=== PATIENT | male | born 1990 | race Caucasian/White ===

== ENCOUNTER 2021-12-25 16:16 | Inpatient (IN) | payer OTHER ==
[2021-12-25 17:26] VITALS: BMI 36.5
[2021-12-25] MEDS ORDERED: DICYCLOMINE HCL 10 MG CAPSULE PO PRN (19:33)
[2021-12-25] MEDS ORDERED: IBUPROFEN 400 MG TABLET (FP) PO PRN (19:33)
[2021-12-25] MEDS ORDERED: METHOCARBAMOL 500 MG TABLET PO PRN (19:33)
[2021-12-25] MEDS ORDERED: chlordiazePOXIDE HCL 25 MG CAPSULE PO PRN (19:33)
[2021-12-25] MEDS ORDERED: MAGNESIUM HYDROX 2400MG/30ML ORAL SUSPENSION 30 ML CUP PO PRN (19:33)
[2021-12-25] MEDS ORDERED: BISMUTH SUBSALICYLATE 524 MG/30 ML PO PRN (19:33)
[2021-12-25] MEDS ORDERED: ACETAMINOPHEN 325 MG TABLET (FP) PO PRN ×2 (19:33)
[2021-12-25] MEDS ORDERED: NICOTINE 10 MG CARTRIDGE (INHALER) IH PRN (19:33)
[2021-12-25] MEDS ORDERED: IBUPROFEN 600 MG TABLET (FP) PO PRN (19:33)
[2021-12-25] MEDS ORDERED: LOPERAMIDE HCL 2 MG CAPSULE PO PRN (19:33)
[2021-12-25] MEDS ORDERED: ONDANSETRON *ODT* 4 MG TABLET SL PRN (19:33)
[2021-12-25] MEDS ORDERED: BENZOCAINE/MENTHOL (CHLORASEPTIC ) LOZENGE MM PRN (19:33)
[2021-12-25] MEDS ORDERED: MAGNESIUM CITRATE 300 ML BOTTLE PO PRN (19:33)
[2021-12-25] MEDS ORDERED: MAG HYDROX/AL HYDROX/SIMETH 30 ML UNIT-DOSE CUP PO PRN (19:33)
[2021-12-25] MEDS ORDERED: traZODone HCL 50 MG TABLET (FP) PO ONE (22:00)
[2021-12-25] MEDS ORDERED: chlordiazePOXIDE HCL 25 MG CAPSULE ONE (22:25)
[2021-12-25] MEDS: THIAMINE HCL 100 MG TABLET (FP) PO SCH (22:39)
[2021-12-25] MEDS: MELATONIN 5 MG TABLETS PO SCH (22:39)
[2021-12-25] MEDS: chlordiazePOXIDE HCL 25 MG CAPSULE PO SCH (23:05)
[2021-12-26] MEDS: chlordiazePOXIDE HCL 25 MG CAPSULE PO SCH ×4 (05:06→22:17)
[2021-12-26] MEDS ORDERED: chlordiazePOXIDE HCL 25 MG CAPSULE ONE ×2 (05:07→09:05)
[2021-12-26] MEDS ORDERED: TRIMETHOBENZAMIDE HCL 200MG/2ML INJ IM ONE ×2 (08:52→09:04)
[2021-12-26] MEDS ORDERED: METOPROLOL TARTRATE 25 MG TABLET (FP) ONE (09:06)
[2021-12-26] MEDS: PRENATAL VITAMINS W/ FOLIC ACID TABLET (FP) PO SCH (09:23)
[2021-12-26] MEDS ORDERED: METOPROLOL TARTRATE 50 MG TABLET (FP) PO SCH ×2 (10:00)
[2021-12-26] MEDS ORDERED: chlordiazePOXIDE HCL 25 MG CAPSULE PO ONE (10:00)
[2021-12-26 12:23] LABS: ALBUMIN 4.3 g/dl (3.4-5.0); BLOOD UREA NITROGEN 13.7 mg/dL (7-18); CALCIUM 9.5 mg/dL (8.5-10.1)
[2021-12-26 12:24] LABS: HEMATOCRIT 44.1 % (35.4-49); HEMOGLOBIN 14.4 GM/dL (11.7-16.9); MCH 30.5 pg (25.7-33.7); MCHC 32.6 g/dl (32.0-35.9); MEAN CELL VOLUME 93.4 fl (80-96); PLATELET COUNT 286 10^3/uL (134-434); RBC 4.71 M/mm3 (4.00-5.60); RDW 13.9 % (11.9-15.9); WHITE BLOOD COUNT 6.5 K/mm3 (4.0-10.0)
[2021-12-26 12:26] LABS: CREATININE 0.9 mg/dL (0.55-1.3)
[2021-12-26 12:28] LABS: BILIRUBIN,TOTAL 1.4 mg/dL (0.2-1); TOT PROT 8.1 g/dl (6.4-8.2)
[2021-12-26] MEDS: hydrOXYzine PAMOATE 25 MG CAPSULE (FP) PO PRN ×2 (17:53→22:18)
[2021-12-26] MEDS ORDERED: traZODone HCL 50 MG TABLET (FP) PO SCH (22:00)
[2021-12-26] MEDS ORDERED: ARIPiprazole 10 MG TABLET PO SCH (22:00)
[2021-12-26] MEDS: MELATONIN 5 MG TABLETS PO SCH (22:17)
[2021-12-26] MEDS: METOPROLOL TARTRATE 50 MG TABLET (FP) PO SCH (22:17)
[2021-12-26] MEDS: THIAMINE HCL 100 MG TABLET (FP) PO SCH (22:18)
[2021-12-27] MEDS: chlordiazePOXIDE HCL 25 MG CAPSULE PO SCH ×2 (05:43→10:56)
[2021-12-27 09:42] VITALS: TEMP 96.9
[2021-12-27] MEDS ORDERED: FLUoxetine HCL 10 MG CAPSULE PO SCH (10:00)
[2021-12-27] MEDS: PRENATAL VITAMINS W/ FOLIC ACID TABLET (FP) PO SCH (10:55)
[2021-12-27] MEDS: METOPROLOL TARTRATE 50 MG TABLET (FP) PO SCH (10:55)
[2021-12-27] MEDS: LACTULOSE 20 GM/30 ML UDC (FOR ORAL USE ONLY) PO SCH ×2 (10:56→15:04)
[2021-12-27 15:38] VITALS: BP 119/79; PULSE 81; RESP 19
[2021-12-28] MEDS ORDERED: chlordiazePOXIDE HCL 10 MG CAPSULE PO PRN
[2021-12-28] MEDS ORDERED: chlordiazePOXIDE HCL 10 MG CAPSULE PO SCH (05:00)
[2021-12-29] MEDS ORDERED: chlordiazePOXIDE HCL 10 MG CAPSULE PO SCH (05:00)
[2021-12-30] MEDS ORDERED: chlordiazePOXIDE HCL 10 MG CAPSULE PO ONE (05:00)
== END 2021-12-27 16:55 | disposition home or self-care (01) | DRG 775 ==
LOC: YASAS 16:16 → Y6N 12-26 08:59
PROVIDERS: ADMIT Allergy & Immunology; ATTEND Surgery
PROC: HZ2ZZZZ Detoxification Services for Substance Abuse Treatment (ICD-10-PCS; principal; 2021-12-26)
DX: F10.230 Alcohol dependence with withdrawal, uncomplicated (principal); F17.210 Nicotine dependence, cigarettes, uncomplicated; F31.9 Bipolar disorder, unspecified; F25.1 Schizoaffective disorder, depressive type; G47.00 Insomnia, unspecified; I10 Essential (primary) hypertension; R79.89 Other specified abnormal findings of blood chemistry; Z86.69 Personal history of other diseases of the nervous system and sense organs
CPT/HCPCS: 36415; 80053; 82140; 85027; 86780; C9803-CS; U0003; U0005